=== PATIENT | female | born 1955 ===

== ENCOUNTER 2017-02-16 09:37 | Day surgery (SDC) | payer MEDICAID ==
[2017-02-16 10:18] VITALS: BMI 24.6
[2017-02-16] MEDS ORDERED: Propofol 10 mg/ml Inj (20 ML) ONE (12:51)
[2017-02-16] MEDS ORDERED: Lactated Ringer's 500 ML IV SCH (13:00)
[2017-02-16] MEDS ORDERED: Lactated Ringer's 500 ML IV ONE ×2 (13:22→13:55)
[2017-02-16 13:40] VITALS: TEMP 98.4; O2SAT 100
[2017-02-16 14:37] VITALS: BP 107/67; PULSE 90; RESP 16
== END 2017-02-16 14:35 | disposition home or self-care (01) ==
LOC: C.ENDO 09:37
PROVIDERS: ATTEND Internal Medicine Gastroenterology
DX: K57.90 Diverticulosis of intestine, part unspecified, without perforation or abscess without bleeding (principal); K64.8 Other hemorrhoids; D12.3 Benign neoplasm of transverse colon
CPT/HCPCS: 45388; 88305; J2704; J7120

== ENCOUNTER 2018-06-01 14:25 | Outpatient (CLI) | payer MEDICAID | END 2018-06-01 14:26 | disposition home or self-care (01) | LOC: C.MAMMO 14:25 ==